=== PATIENT | female | born 1935 | race Caucasian/White ===

== ENCOUNTER 2017-07-08 10:11 | Emergency (ER) | payer MEDICARE, OTHER ==
[~2017-07-08] VITALS: Ht 152.4 cm; Wt 39.5 kg
[2017-07-08 10:13] VITALS: BP 161/71; PULSE 88; RESP 16; TEMP 98.4; O2SAT 100
--- NOTE | 2017-07-08 10:33 | PD ---
HPI Chief Complaint: laceration Time Seen by Provider: 10:26 Travel History International Travel<30 days: No Contact w/Intl Traveler<30days: No History of Present Illness HPI 82-year-old woman, history of mild dementia, presents emergency Department laceration to the left brow. Unclear how she sustained a lives alone. No sick This morning. Denies history of falls. Otherwise been feeling well and healthy. History Past Medical History Narrative Medical Dementia Social History Tobacco Use: No Review of Systems Except as stated in HPI: all other systems reviewed are Neg Physical Exam Narrative GENERAL: Elderly 82-year-old woman, no acute distress. SKIN: Focused skin assessment warm/dry. HEAD: Atraumatic. Normocephalic. EYES: Pupils equal and round. No scleral icterus. No injection or drainage. ENT: No nasal bleeding or discharge. Mucous membranes pink and moist. Small laceration over the left brow, about 1 cm. NECK: Trachea midline. No JVD. No midline tenderness. Full painless range of motion. CARDIOVASCULAR: Warm and well perfused. RESPIRATORY: Normal rate and effort. MUSCULOSKELETAL: No obvious deformities. No clubbing. No cyanosis. No edema. NEUROLOGICAL: Awake and alert. Mild confusion. No obvious cranial nerve deficits. Motor grossly within normal limits. Normal speech. Data Data Last Documented VS Vital Signs Date Time Temp Pulse Resp B/P (MAP) Pulse Ox O2 Delivery O2 Flow Rate FiO2 07/08/17 10:13 98.4 88 16 161/71 (101) 100 Room Air MDM Medical Decision Making Medical Screen Exam Complete: Yes Emergency Medical Condition: Yes Differential Diagnosis Laceration, head injury, other Narrative Course Medical decision making 82 year-old woman laceration to the brow unclear etiology. May need some glue. We'll recommend CT head, reassess laceration for possible repair. Up-to-date on tetanus. Burton Rosales MD Jul 08, 2017 10:33
[2017-07-08] MEDS ORDERED: LIDOCAINE 1%/EPINEPHrine 1:100,000 SOLN 20 ML VIAL ONE (10:57)
[2017-07-08] MEDS ORDERED: LIDOCAINE 2%/EPINEPHrine 1:100,000 20ML MDV NERV BLOCK ONE (11:00)
--- NOTE | 2017-07-08 11:24 | RADRPT ---
EXAM DATE/TIME: 07/08/2017 11:05 [facility] COMPARISON: No previous studies available for comparison. INDICATIONS : Laceration left eye brow RADIATION DOSE: 29.60 CTDIvol (mGy) MEDICAL HISTORY : Dementia. SURGICAL HISTORY : None. ENCOUNTER: Initial ACUITY: 1 day PAIN SCALE: 2/10 LOCATION: Left cranial TECHNIQUE: Multiple contiguous axial images were obtained of the head. Using automated exposure control and adj ustment of the mA and/or kV according to patient size, radiation dose was kept as low as reasonably a chievable to obtain optimal diagnostic quality images. DICOM format image data is available electro nically for review and comparison. FINDINGS: CEREBRUM: The ventricles are normal for age. No evidence of midline shift, mass lesion, hemorrhage or acute in farction. No extra-axial fluid collections are seen. POSTERIOR FOSSA: The cerebellum and brainstem are intact. The 4th ventricle is midline. The cerebellopontine angle i s unremarkable. EXTRACRANIAL: The visualized portion of the orbits is intact. SKULL: The calvaria is intact. No evidence of skull fracture. CONCLUSION: Normal examination. Burton Santos MD on July 08, 2017 at 11:22 Board Certified Radiologist. This report was verified electronically.
--- NOTE | 2017-07-08 11:27 | PD ---
Physical Exam Date Seen by Provider: Jul 08, 2017 Time Seen by Provider: 11:25 Narrative 82-year-old female with history of dementia seen by Dr. Rosales, awaiting CT results. Laceration repair performed on the left brow. Data Data Last Documented VS Vital Signs Date Time Temp Pulse Resp B/P (MAP) Pulse Ox O2 Delivery O2 Flow Rate FiO2 07/08/17 10:13 98.4 88 16 161/71 (101) 100 Room Air Orders Orders Ct Brain W/O Iv Contrast(Rout) (07/08/17 ) Lidocai-Epi 2%-1:100,000 Inj (Xylocaine- (07/08/17 11:00) Lidocai-Epi 1%-1:100,000 Inj (Xylocaine- (07/08/17 10:57) MDM Medical Record Reviewed: Yes Supervised Visit with RADHA: Yes Narrative Course CT scan shows no acute process per radiologist. Procedures Procedure Narrative LACERATION LOCATION: Left lateral brow LENGTH: 2 cm NUMBER OF STITCHES/MORRO: 1 vertical mattress, one horizontal mattress. One simple suture. REPAIR: The area of the laceration was prepped with Betadine and sterilely draped. The laceration was infiltrated with 2 mL was 1% lidocaine with epi. The wound was copiously irrigated and explored without evidence of foreign body , tendon injury or neurovascular injury. The wound was closed using 6-0 Prolene. This was a single layer repair. A sterile dressing was applied. The patient was advised to keep the dressing clean and dry. Patient tolerated the procedure well. Diagnosis Primary Impression: Fall Qualified Codes: W19.XXXA - Unspecified fall, initial encounter Additional Impressions: Simple laceration of face Qualified Codes: S01.81XA - Laceration without foreign body of other part of head, initial encounter History of dementia Referrals: Primary Care Physician Patient Instructions: Facial Laceration (ED), General Instructions Additional Instruction: CT is negative for acute process. Sutures to remain in place for the next 7 days. Wound care as discussed. Follow-up with primary care physician, or return to emergency Department for suture removal as needed. Med/Other Pt SpecificInfo: No Change to Meds, Wound Care Scripts Unable to Obtain Active Prescriptions or Reported Meds Disposition: 01 DISCHARGE HOME Condition: Stable Hank Otto Jul 08, 2017 11:27
== END 2017-07-08 11:52 | disposition home or self-care (01) ==
LOC: NEPD 10:11
DX: S01.112A Laceration without foreign body of left eyelid and periocular area, initial encounter (principal); F03.90 Unspecified dementia, unspecified severity, without behavioral disturbance, psychotic disturbance, mood disturbance, and anxiety; X58.XXXA Exposure to other specified factors, initial encounter
CPT/HCPCS: 12011; 70450